=== PATIENT | male | born 1970 | race Caucasian/White ===

== ENCOUNTER → 2020-09-26 | Outpatient (CLI) | payer OTHER ==
[~2020-09-26] MED LIST: IBUPROFEN600 MG PO; NORCO 10-325 T1 EACH PO; SUBOXONE 8 MG-1 EACH SL; TORADOL 10 MG T10 MG PO; ZOFRAN ODT4 MG PO
[2020-09-26 09:04] LABS: HEMOGLOBIN 14.5 gm/dl (14.0-17.5); RED BLOOD COUNT 5.05 M/UL (4.20-5.50); WHITE BLOOD COUNT 12.3 K/UL (4.5-11.0)
[2020-09-26 09:23] LABS: BUN/CREATININE RATIO 13 (0-10)
[2020-09-27 10:11] LABS: FSH, SERUM 4.2 mIU/mL (1.5-12.4); PROLACTIN 10.9 ng/mL (4.0-15.2)
[2020-09-28 12:13] LABS: TESTOSTERONE, SERUM 42 ng/dL (264-916)
== END ==
LOC: LAB 08:33
PROVIDERS: Emergency Medicine
DX: E29.1 Testicular hypofunction (principal); R53.83 Other fatigue; R68.82 Decreased libido
CPT/HCPCS: 36415; 80053; 83001; 83002; 84146; 84402; 84403; 84443; 84550; 85025

== ENCOUNTER → 2022-03-20 | Outpatient (CLI) | payer OTHER | LOC: CT 03-01 08:30 | DX: H90.71 Mixed conductive and sensorineural hearing loss, unilateral, right ear, with unrestricted hearing on the contralateral side (principal); H66.3X1 Other chronic suppurative otitis media, right ear | CPT/HCPCS: 70482; Q9967 ==